=== PATIENT | female | born 1955 | race Caucasian/White ===

== ENCOUNTER 2021-12-27 04:24 | Day surgery (SDC) | payer OTHER, MEDICARE ==
[2021-12-24 13:50] VITALS: BMI 32.8
[2021-12-27 09:26] VITALS: TEMP 97.4
[2021-12-27 10:00] VITALS: BP 165/49; PULSE 67
== END 2021-12-27 10:00 | disposition home or self-care (01) ==
LOC: JASU-ENDO 04:24
PROVIDERS: ATTEND Internal Medicine Gastroenterology
PROC: 0DBN8ZX Excision of Sigmoid Colon, Via Natural or Artificial Opening Endoscopic, Diagnostic (ICD-10-PCS; 2021-12-27)
PROC: 0DBM8ZX Excision of Descending Colon, Via Natural or Artificial Opening Endoscopic, Diagnostic (ICD-10-PCS; principal; 2021-12-27 09:15)
DX: Z12.11 Encounter for screening for malignant neoplasm of colon (principal); Z86.010 Personal history of colon polyps; K57.30 Diverticulosis of large intestine without perforation or abscess without bleeding; D12.4 Benign neoplasm of descending colon; D12.5 Benign neoplasm of sigmoid colon; K64.8 Other hemorrhoids
CPT/HCPCS: 88305-TC

== ENCOUNTER 2022-01-10 03:56 | Day surgery (SDC) | payer OTHER, MEDICARE ==
[2022-01-07 16:09] VITALS: BMI 32.8
[2022-01-10] MEDS ORDERED: SIMETHICONE 40 MG/0.6 ML BOTTLE ONE (09:20)
[2022-01-10 10:37] VITALS: PULSE 57
[2022-01-10 10:58] VITALS: BP 117/55; RESP 18; TEMP 98
== END 2022-01-10 10:35 | disposition home or self-care (01) ==
LOC: JASU-ENDO 03:56
PROVIDERS: ATTEND Internal Medicine Gastroenterology
PROC: 0DB78ZX Excision of Stomach, Pylorus, Via Natural or Artificial Opening Endoscopic, Diagnostic (ICD-10-PCS; 2022-01-10)
PROC: 0DB68ZX Excision of Stomach, Via Natural or Artificial Opening Endoscopic, Diagnostic (ICD-10-PCS; 2022-01-10)
PROC: 0DB98ZX Excision of Duodenum, Via Natural or Artificial Opening Endoscopic, Diagnostic (ICD-10-PCS; principal; 2022-01-10 09:46)
DX: K31.7 Polyp of stomach and duodenum (principal); K29.50 Unspecified chronic gastritis without bleeding; K29.80 Duodenitis without bleeding
CPT/HCPCS: 88305-TC; 88342-TC